=== PATIENT | female | born 1970 | race African-American/Black ===

== ENCOUNTER 2018-02-10 01:44 | Inpatient (IN) | payer OTHER ==
[2018-02-10] VITALS (7 sets, daily range): BP systolic 91–101; BP diastolic 54–67
[~2018-02-10] VITALS: Ht 170.2 cm; Wt 69.0 kg
[2018-02-10 02:42] LABS: BASOPHIL % 0.8 % (0-2); PLATELET COUNT 342 x10^3mcL (130-400)
[2018-02-10 02:49] LABS: CALCIUM 9.1 mg/dL (8.5-10.1); CARBON DIOXIDE 22.3 mmol/L (21-32); CHLORIDE SERUM 97 mmol/L (98-107); CREATININE SERUM 0.7 mg/dL (0.6-1.0); GFR1 > 60 mL/min; GLUCOSE SERUM 95 mg/dL (74-106); POTASSIUM SERUM 3.7 mmol/L (3.5-5.1); RED CELL DISTRIBUTION WIDTH 16.8 % (11.5-14.5); SODIUM SERUM 131 mmol/L (136-145)
[2018-02-10 02:53] LABS: ALBUMIN 3.8 g/dL (3.4-5.0); ALKALINE PHOSPHATASE 45 U/L (46-116); AST/SGOT 18 U/L (15-37); BILIRUBIN TOTAL 1.08 mg/dL (0.20-1.00); LIPASE 57 IU/L (73-393)
[2018-02-10 02:57] LABS: ALT/SGPT < 6.0 U/L (14-59)
[2018-02-10] MEDS ORDERED: FERROUS SULFAT325 M2 PO (04:02)
[2018-02-10 04:11] LABS: microscopic required? NO
[2018-02-10 04:28] LABS: UA SPECIFIC GRAVITY <=1.005 (1.005-1.035); urine erythrocyte NEGATIVE (NEGATIVE)
[2018-02-10 04:30] LABS: MAGNESIUM 2.4 mg/dL (1.8-2.4); PHOSPHOROUS 3.1 mg/dL (2.5-4.9)
[2018-02-10 04:33] LABS: CHOLESTEROL/HDL RATIO 2.5
[2018-02-10 04:35] LABS: AMPHETAMINE QUAL UR NONE DETECTED (NEG <=1000)
[2018-02-10 04:36] LABS: T3 TOTAL 1.03 ng/mL
[2018-02-10 04:45] LABS: FREE T4 1.17 ng/dL (0.76-1.46); FREE THYROXINE INDEX 3.1 ug/dL (1.4-4.5); T4(THYROXINE) 9.4 ug/dL (4.7-13.3)
[2018-02-11 05:13] VITALS: BP 104/58
[2018-02-11 07:10] LABS: CALCIUM 8.4 mg/dL (8.5-10.1); CARBON DIOXIDE 23.7 mmol/L (21-32); CHLORIDE SERUM 106 mmol/L (98-107); CREATININE SERUM 0.7 mg/dL (0.6-1.0); GFR1 > 60 mL/min; GLUCOSE SERUM 99 mg/dL (74-106); MAGNESIUM 1.9 mg/dL (1.8-2.4); POTASSIUM SERUM 3.9 mmol/L (3.5-5.1); SODIUM SERUM 138 mmol/L (136-145)
[2018-02-11 07:26] LABS: PLATELET COUNT 280 x10^3mcL (130-400)
[2018-02-11 07:30] LABS: RED CELL DISTRIBUTION WIDTH 17.3 % (11.5-14.5)
[2018-02-11 08:45] LABS: BAND NEUTROPHIL 0 % (0-10); BASOPHIL 0 % (0-2); MONOCYTE 8 % (0-7); SEGMENTED NEUTROPHILS 47 % (37-75)
[2018-02-11 08:47] LABS: PLATELET MORPHOLOGY PLATELETS NORMAL; burr cell (echinocyte) 1+; ovalocyte/elliptocyte 1+; rbc morphology (normal/abnorm) ABNORMAL (NORMAL)
[2018-02-11 09:40] VITALS: BP 103/72
[2018-02-11 11:48] VITALS: BP 98/64
[2018-02-11 17:00] VITALS: BP 101/65
[2018-02-11 21:43] VITALS: BP 102/67
[2018-02-12 05:18] VITALS: BP 106/67
[2018-02-12] MEDS ORDERED: FLO4 PO (05:44)
[2018-02-12] MEDS ORDERED: KEFLEX500 M1 PO (05:45)
[2018-02-12] MEDS ORDERED: LAC PO (05:45)
[2018-02-12 17:29] VITALS: BP 112/60
[2018-02-12 21:48] VITALS: BP 108/72
[2018-02-13 05:11] VITALS: BP 105/66
[2018-02-13 07:01] LABS: CALCIUM 8.8 mg/dL (8.5-10.1); CARBON DIOXIDE 24.4 mmol/L (21-32); CHLORIDE SERUM 106 mmol/L (98-107); CREATININE SERUM 0.7 mg/dL (0.6-1.0); GFR1 > 60 mL/min; GLUCOSE SERUM 83 mg/dL (74-106); MAGNESIUM 1.9 mg/dL (1.8-2.4); PHOSPHOROUS 3.9 mg/dL (2.5-4.9); PLATELET COUNT 286 x10^3mcL (130-400); POTASSIUM SERUM 3.6 mmol/L (3.5-5.1); SODIUM SERUM 141 mmol/L (136-145)
[2018-02-13 07:07] LABS: RED CELL DISTRIBUTION WIDTH 16.4 % (11.5-14.5)
[2018-02-13 08:39] LABS: BAND NEUTROPHIL 0 % (0-10); BASOPHIL 0 % (0-2); MONOCYTE 10 % (0-7); PLATELET MORPHOLOGY PLATELETS NORMAL; SEGMENTED NEUTROPHILS 44 % (37-75); rbc morphology (normal/abnorm) ABNORMAL (NORMAL)
[2018-02-13 08:40] LABS: burr cell (echinocyte) 1+; ovalocyte/elliptocyte 1+
[2018-02-13 11:01] VITALS: BP 105/64
[2018-02-13 16:46] VITALS: BP 105/68
[2018-02-13 21:00] VITALS: BP 108/72
[2018-02-13 23:14] VITALS: BP 116/73
[2018-02-14 04:51] VITALS: BP 118/74
[2018-02-14 07:48] LABS: CALCIUM 8.9 mg/dL (8.5-10.1); CARBON DIOXIDE 24.2 mmol/L (21-32); CHLORIDE SERUM 110 mmol/L (98-107); CREATININE SERUM 0.6 mg/dL (0.6-1.0); GFR1 > 60 mL/min; GLUCOSE SERUM 100 mg/dL (74-106); PLATELET COUNT 257 x10^3mcL (130-400); SODIUM SERUM 144 mmol/L (136-145)
[2018-02-14 08:07] VITALS: BP 106/65
[2018-02-14 08:52] VITALS: Ht 170.2 cm; Wt 69.0 kg
[2018-02-14] MEDS ORDERED: LACTULOSE10 GM/152 PO (10:08)
[2018-02-14 11:01] VITALS: BP 106/65
[2018-02-14 11:34] LABS: BAND NEUTROPHIL 0 % (0-10); BASOPHIL 0 % (0-2); MONOCYTE 10 % (0-7); SEGMENTED NEUTROPHILS 48 % (37-75)
[2018-02-14 11:35] LABS: PLATELET MORPHOLOGY PLATELETS NORMAL; burr cell (echinocyte) 1+; ovalocyte/elliptocyte 1+; rbc morphology (normal/abnorm) ABNORMAL (NORMAL)
== END 2018-02-14 11:48 | disposition home or self-care (01) | DRG 249 ==
LOC: ED 01:44 → MU 04:00 → DU 04:00 → MU 02-11 09:17
PROVIDERS: Emergency Medicine; Family Medicine; Internal Medicine Gastroenterology
PROC: 0DB78ZX Excision of Stomach, Pylorus, Via Natural or Artificial Opening Endoscopic, Diagnostic (ICD-10-PCS; principal; 2018-02-13 09:30)
PROC: 0DJD8ZZ Inspection of Lower Intestinal Tract, Via Natural or Artificial Opening Endoscopic (ICD-10-PCS; 2018-02-13 09:30)
DX: K52.9 Noninfective gastroenteritis and colitis, unspecified (principal); N17.0 Acute kidney failure with tubular necrosis; N13.6 Pyonephrosis; E87.1 Hypo-osmolality and hyponatremia; E83.51 Hypocalcemia; D72.819 Decreased white blood cell count, unspecified; E78.5 Hyperlipidemia, unspecified; K64.8 Other hemorrhoids; E87.8 Other disorders of electrolyte and fluid balance, not elsewhere classified; D64.9 Anemia, unspecified; E80.6 Other disorders of bilirubin metabolism; Z88.1 Allergy status to other antibiotic agents; Z88.8 Allergy status to other drugs, medicaments and biological substances; Z90.49 Acquired absence of other specified parts of digestive tract
CPT/HCPCS: 43235; 45378; 83880; 84439; 87046; 87046-59; J0696; J1200; J1610; J2250; J2270; J2310; J2765; J3010; J3490; J7030; J7040; J8597; Q0092; Q0162

== ENCOUNTER 2018-02-22 09:08 | Emergency (ER) | payer OTHER ==
[~2018-02-22] VITALS: Ht 170.2 cm; Wt 72.6 kg
[~2018-02-22 09:08] MED LIST: FERROUS SULFAT325 M2 PO; FLO4 PO; KEFLEX500 M1 PO; LAC PO; LACTULOSE10 GM/152 PO
[2018-02-22 09:16] VITALS: Ht 170.2 cm; Wt 72.6 kg
[2018-02-22 10:26] LABS: BASOPHIL % 1.1 % (0-2); PLATELET COUNT 267 x10^3mcL (130-400)
[2018-02-22 10:27] LABS: CALCIUM 8.4 mg/dL (8.5-10.1); CARBON DIOXIDE 26.2 mmol/L (21-32); CHLORIDE SERUM 102 mmol/L (98-107); CREATININE SERUM 0.7 mg/dL (0.6-1.0); GFR1 > 60 mL/min; GLUCOSE SERUM 94 mg/dL (74-106); POTASSIUM SERUM 3.8 mmol/L (3.5-5.1); SODIUM SERUM 136 mmol/L (136-145)
[2018-02-22 10:31] LABS: ALBUMIN 3.4 g/dL (3.4-5.0); ALKALINE PHOSPHATASE 47 U/L (46-116); ALT/SGPT 26 U/L (14-59); AMYLASE 41 U/L (25-115); AST/SGOT 38 U/L (15-37); BILIRUBIN TOTAL 0.2 mg/dL (0.20-1.00); LIPASE 49 IU/L (73-393); TOTAL PROTEIN, SERUM 6.2 g/dL (6.4-8.2)
[2018-02-22 10:43] LABS: RED CELL DISTRIBUTION WIDTH 16.3 % (11.5-14.5)
[2018-02-22 12:10] VITALS: BP 105/63
== END 2018-02-22 12:10 | disposition home or self-care (01) ==
LOC: ED 09:08
PROVIDERS: Specialist
DX: R10.84 Generalized abdominal pain (principal); R19.7 Diarrhea, unspecified; Z88.1 Allergy status to other antibiotic agents; Z88.8 Allergy status to other drugs, medicaments and biological substances
CPT/HCPCS: 83880; J1885; J2405

== ENCOUNTER 2018-02-24 23:06 | Emergency (ER) | payer OTHER ==
[~2018-02-24] VITALS: Ht 170.2 cm; Wt 73.0 kg
[2018-02-24 23:22] VITALS: Ht 170.2 cm; Wt 73.0 kg
[2018-02-24 23:52] LABS: BASOPHIL % 0.9 % (0-2); PLATELET COUNT 331 x10^3mcL (130-400)
[2018-02-25] LABS: RED CELL DISTRIBUTION WIDTH 16.2 % (11.5-14.5)
[2018-02-25 00:06] LABS: CALCIUM 9.1 mg/dL (8.5-10.1); CHLORIDE SERUM 102 mmol/L (98-107); CREATININE SERUM 0.7 mg/dL (0.6-1.0); GFR1 > 60 mL/min; GLUCOSE SERUM 93 mg/dL (74-106); POTASSIUM SERUM 3.4 mmol/L (3.5-5.1); SODIUM SERUM 133 mmol/L (136-145)
[2018-02-25 00:10] LABS: ALBUMIN 3.8 g/dL (3.4-5.0); ALKALINE PHOSPHATASE 56 U/L (46-116); ALT/SGPT 51 U/L (14-59); AST/SGOT 62 U/L (15-37); BILIRUBIN TOTAL 0.1 mg/dL (0.20-1.00); LIPASE 73 IU/L (73-393); TOTAL PROTEIN, SERUM 6.9 g/dL (6.4-8.2)
[2018-02-25 01:25] VITALS: BP 115/75
== END 2018-02-25 01:25 | disposition home or self-care (01) ==
LOC: ED 23:06
PROVIDERS: Emergency Medicine
DX: R07.89 Other chest pain (principal); K21.9 Gastro-esophageal reflux disease without esophagitis; I10 Essential (primary) hypertension; E11.9 Type 2 diabetes mellitus without complications; D64.9 Anemia, unspecified; Z88.8 Allergy status to other drugs, medicaments and biological substances; Z88.1 Allergy status to other antibiotic agents
CPT/HCPCS: 36415; Q0092

== ENCOUNTER 2018-04-09 17:44 | Emergency (ER) | payer OTHER ==
[~2018-04-09] VITALS: Ht 170.2 cm; Wt 68.0 kg
[2018-04-09 18:03] VITALS: Ht 170.2 cm; Wt 68.0 kg
[2018-04-09 18:38] VITALS: BP 123/78
== END 2018-04-09 18:38 | disposition home or self-care (01) ==
LOC: ED 17:44
DX: H92.13 Otorrhea, bilateral (principal); Z88.1 Allergy status to other antibiotic agents; Z88.8 Allergy status to other drugs, medicaments and biological substances

== ENCOUNTER 2018-07-05 17:18 | Emergency (ER) | payer OTHER ==
[~2018-07-05] VITALS: Ht 170.2 cm; Wt 71.4 kg
[2018-07-05 17:32] VITALS: Ht 170.2 cm; Wt 71.4 kg
[2018-07-05 23:26] VITALS: BP 121/74
== END 2018-07-05 23:26 | disposition home or self-care (01) ==
LOC: ED 17:18
DX: M70.61 Trochanteric bursitis, right hip (principal); M70.71 Other bursitis of hip, right hip; Y93.89 Activity, other specified; I10 Essential (primary) hypertension; E11.9 Type 2 diabetes mellitus without complications; Z86.2 Personal history of diseases of the blood and blood-forming organs and certain disorders involving the immune mechanism
CPT/HCPCS: J1885

== ENCOUNTER 2018-08-28 20:21 | Emergency (ER) | payer OTHER ==
[~2018-08-28] VITALS: Ht 170.2 cm; Wt 75.7 kg
[2018-08-28 20:26] VITALS: Ht 170.2 cm; Wt 75.7 kg
[2018-08-28 21:01] LABS: CALCIUM 9.2 mg/dL (8.5-10.1); CARBON DIOXIDE 23.1 mmol/L (21-32); CHLORIDE SERUM 96 mmol/L (98-107); CREATININE SERUM 0.8 mg/dL (0.6-1.0); GFR1 > 60 mL/min; GLUCOSE SERUM 88 mg/dL (74-106); SODIUM SERUM 133 mmol/L (136-145)
[2018-08-28 21:02] LABS: BASOPHIL % 0.9 % (0-2); RED CELL DISTRIBUTION WIDTH 14.2 % (11.5-14.5)
[2018-08-28 21:03] LABS: PLATELET COUNT 437 x10^3mcL (130-400)
[2018-08-28 21:06] LABS: ALKALINE PHOSPHATASE 67 U/L (46-116); ALT/SGPT 22 U/L (14-59); AST/SGOT 26 U/L (15-37); BILIRUBIN TOTAL 0.25 mg/dL (0.20-1.00); TOTAL PROTEIN, SERUM 7.7 g/dL (6.4-8.2)
[2018-08-28 21:22] LABS: UA SPECIFIC GRAVITY <=1.005 (1.005-1.035); microscopic required? YES; urine erythrocyte 2+ (NEGATIVE)
[2018-08-28 23:13] VITALS: BP 130/84
== END 2018-08-28 23:13 | disposition home or self-care (01) ==
LOC: ED 20:21
PROVIDERS: Emergency Medicine
DX: R19.7 Diarrhea, unspecified (principal); M79.604 Pain in right leg; Z88.8 Allergy status to other drugs, medicaments and biological substances; Z88.1 Allergy status to other antibiotic agents
CPT/HCPCS: 36415; Q0092

== ENCOUNTER 2018-10-21 18:19 | Emergency (ER) | payer OTHER ==
[~2018-10-21] VITALS: Ht 170.2 cm; Wt 77.1 kg
[2018-10-21 18:29] VITALS: Ht 170.2 cm; Wt 77.1 kg
[2018-10-21 19:31] VITALS: BP 127/79
== END 2018-10-21 19:31 | disposition home or self-care (01) ==
LOC: ED 18:19
DX: R11.2 Nausea with vomiting, unspecified (principal); R19.7 Diarrhea, unspecified; R10.13 Epigastric pain; B96.81 Helicobacter pylori [H. pylori] as the cause of diseases classified elsewhere; M54.30 Sciatica, unspecified side; Z90.49 Acquired absence of other specified parts of digestive tract; Z88.1 Allergy status to other antibiotic agents; Z98.890 Other specified postprocedural states

== ENCOUNTER 2019-06-08 20:36 | Emergency (ER) | payer OTHER ==
[~2019-06-08] VITALS: Ht 170.2 cm; Wt 83.0 kg
[2019-06-08 20:56] VITALS: BP 127/78; Ht 170.2 cm; Wt 83.0 kg
== END 2019-06-08 22:02 | disposition home or self-care (01) ==
LOC: ED 20:36
DX: H61.21 Impacted cerumen, right ear (principal); Z88.8 Allergy status to other drugs, medicaments and biological substances; Z88.1 Allergy status to other antibiotic agents; Z86.2 Personal history of diseases of the blood and blood-forming organs and certain disorders involving the immune mechanism; Z98.890 Other specified postprocedural states

== ENCOUNTER 2019-12-10 22:37 | Emergency (ER) | payer OTHER ==
[~2019-12-10] VITALS: Ht 175.3 cm; Wt 85.7 kg
[2019-12-10 22:39] VITALS: Ht 175.3 cm; Wt 85.7 kg
[2019-12-11 00:18] LABS: BASOPHIL % 0.8 % (0-2); PLATELET COUNT 324 x10^3mcL (130-400)
[2019-12-11 00:21] LABS: RED CELL DISTRIBUTION WIDTH 14.7 % (11.5-14.5)
[2019-12-11 01:02] LABS: CALCIUM 9.2 mg/dL (8.5-10.1); CARBON DIOXIDE 31.1 mmol/L (21-32); CHLORIDE SERUM 98 mmol/L (98-107); CREATININE SERUM 0.7 mg/dL (0.6-1.0); GFR1 > 60 mL/min; GLUCOSE SERUM 97 mg/dL (74-106); POTASSIUM SERUM 3.9 mmol/L (3.5-5.1); SODIUM SERUM 134 mmol/L (136-145)
[2019-12-11 01:04] LABS: AMPHETAMINE QUAL UR NONE DETECTED (See below)
[2019-12-11 01:08] LABS: ALBUMIN 3.7 g/dL (3.4-5.0); ALKALINE PHOSPHATASE 104 U/L (46-116); ALT/SGPT 16 U/L (14-59); AST/SGOT 18 U/L (15-37); BILIRUBIN TOTAL 0.2 mg/dL (0.20-1.00); LIPASE 72 IU/L (73-393); TOTAL PROTEIN, SERUM 7.7 g/dL (6.4-8.2)
[2019-12-11 02:30] VITALS: BP 114/76
== END 2019-12-11 02:30 | disposition home or self-care (01) ==
LOC: ED 22:37
PROVIDERS: Emergency Medicine
DX: R53.1 Weakness (principal); F41.9 Anxiety disorder, unspecified; R42 Dizziness and giddiness; Z88.8 Allergy status to other drugs, medicaments and biological substances; Z88.1 Allergy status to other antibiotic agents
CPT/HCPCS: Q0092

== ENCOUNTER 2020-01-26 22:32 | Emergency (ER) | payer OTHER ==
[~2020-01-26] VITALS: Ht 172.7 cm; Wt 84.8 kg
[2020-01-26 22:42] VITALS: Ht 172.7 cm; Wt 84.8 kg
[2020-01-27 00:07] LABS: PLATELET COUNT 280 x10^3mcL (130-400)
[2020-01-27 00:08] LABS: RED CELL DISTRIBUTION WIDTH 15.4 % (11.5-14.5)
[2020-01-27 00:18] LABS: CALCIUM 9.1 mg/dL (8.5-10.1); CHLORIDE SERUM 104 mmol/L (98-107); CREATININE SERUM 0.6 mg/dL (0.6-1.0); GFR1 > 60 mL/min; GLUCOSE SERUM 101 mg/dL (74-106); POTASSIUM SERUM 3.5 mmol/L (3.5-5.1); SODIUM SERUM 139 mmol/L (136-145)
[2020-01-27 00:25] LABS: ALBUMIN 3.6 g/dL (3.4-5.0); ALKALINE PHOSPHATASE 132 U/L (46-116); ALT/SGPT 13 U/L (14-59); AST/SGOT 21 U/L (15-37); BILIRUBIN TOTAL 0.1 mg/dL (0.20-1.00); LIPASE 78 IU/L (73-393); TOTAL PROTEIN, SERUM 7.5 g/dL (6.4-8.2)
[2020-01-27 01:08] LABS: microscopic required? NO
[2020-01-27 01:23] LABS: UA SPECIFIC GRAVITY <=1.005 (1.005-1.035); urine erythrocyte NEGATIVE (NEGATIVE)
[2020-01-27 03:01] VITALS: BP 112/71
== END 2020-01-27 03:03 | disposition home or self-care (01) ==
LOC: ED 22:32
PROVIDERS: Emergency Medicine
DX: R10.10 Upper abdominal pain, unspecified (principal); R11.2 Nausea with vomiting, unspecified; R19.7 Diarrhea, unspecified; Z88.8 Allergy status to other drugs, medicaments and biological substances; Z88.1 Allergy status to other antibiotic agents; Z98.890 Other specified postprocedural states
CPT/HCPCS: 87046; 87046-59; J2405; J7030; Q0092

== ENCOUNTER 2020-04-26 23:54 | Emergency (ER) | payer OTHER ==
[~2020-04-26] VITALS: Ht 170.2 cm; Wt 85.4 kg
[2020-04-27 00:02] VITALS: Ht 170.2 cm; Wt 85.4 kg
[2020-04-27 01:40] LABS: CARBON DIOXIDE 29.1 mmol/L (21-32); CHLORIDE SERUM 103 mmol/L (98-107); CREATININE SERUM 0.9 mg/dL (0.6-1.0); GFR1 > 60 mL/min; GLUCOSE SERUM 90 mg/dL (74-106); POTASSIUM SERUM 3.8 mmol/L (3.5-5.1); SODIUM SERUM 138 mmol/L (136-145)
[2020-04-27 01:44] LABS: ALBUMIN 3.8 g/dL (3.4-5.0); ALKALINE PHOSPHATASE 117 U/L (46-116); ALT/SGPT 12 U/L (14-59); AST/SGOT 13 U/L (15-37); BILIRUBIN TOTAL 0.13 mg/dL (0.20-1.00); TOTAL PROTEIN, SERUM 7.3 g/dL (6.4-8.2)
[2020-04-27 01:58] LABS: BASOPHIL % 0.8 % (0-2); PLATELET COUNT 302 x10^3mcL (130-400)
[2020-04-27 04:50] VITALS: BP 127/55
== END 2020-04-27 03:40 | disposition home or self-care (01) ==
LOC: ED 23:54
PROVIDERS: Emergency Medicine
DX: R42 Dizziness and giddiness (principal); H53.9 Unspecified visual disturbance; R53.1 Weakness; Z98.890 Other specified postprocedural states; Z86.2 Personal history of diseases of the blood and blood-forming organs and certain disorders involving the immune mechanism; Z88.1 Allergy status to other antibiotic agents
CPT/HCPCS: J7030

== ENCOUNTER 2020-06-20 20:03 | Emergency (ER) | payer OTHER ==
[~2020-06-20] VITALS: Ht 170.2 cm; Wt 86.2 kg
[2020-06-20 21:42] LABS: BASOPHIL % 1.6 % (0-2); PLATELET COUNT 349 x10^3mcL (130-400); RED CELL DISTRIBUTION WIDTH 14.7 % (11.5-14.5)
[2020-06-20 21:51] LABS: CALCIUM 9.3 mg/dL (8.5-10.1); CARBON DIOXIDE 29.2 mmol/L (21-32); CHLORIDE SERUM 103 mmol/L (98-107); CREATININE SERUM 0.9 mg/dL (0.6-1.0); GFR1 > 60 mL/min; GLUCOSE SERUM 111 mg/dL (74-106); POTASSIUM SERUM 4.3 mmol/L (3.5-5.1); SODIUM SERUM 140 mmol/L (136-145)
[2020-06-20 21:59] LABS: ALKALINE PHOSPHATASE 136 U/L (46-116); ALT/SGPT 15 U/L (14-59); AST/SGOT 25 U/L (15-37); BILIRUBIN TOTAL 0.19 mg/dL (0.20-1.00)
[2020-06-20 23:13] VITALS: BP 145/82
== END 2020-06-20 23:13 | disposition home or self-care (01) ==
LOC: ED 20:03
PROVIDERS: Specialist
DX: R42 Dizziness and giddiness (principal); R19.7 Diarrhea, unspecified; R11.0 Nausea; H53.8 Other visual disturbances; Z98.890 Other specified postprocedural states; Z88.1 Allergy status to other antibiotic agents; Z88.8 Allergy status to other drugs, medicaments and biological substances
CPT/HCPCS: J8597

== ENCOUNTER 2020-08-28 22:48 | Emergency (ER) | payer OTHER ==
[~2020-08-28] VITALS: Ht 170.2 cm; Wt 88.9 kg
[2020-08-28 23:21] VITALS: Ht 170.2 cm; Wt 88.9 kg
[2020-08-29 01:14] LABS: microscopic required? NO
[2020-08-29 01:21] LABS: PLATELET COUNT 326 x10^3mcL (130-400)
[2020-08-29 01:23] LABS: UA SPECIFIC GRAVITY <=1.005 (1.005-1.035); urine erythrocyte NEGATIVE (NEGATIVE)
[2020-08-29 01:23] LABS: RED CELL DISTRIBUTION WIDTH 14.9 % (11.5-14.5)
[2020-08-29 01:41] LABS: CALCIUM 9.9 mg/dL (8.5-10.1); CARBON DIOXIDE 30.5 mmol/L (21-32); CHLORIDE SERUM 99 mmol/L (98-107); CREATININE SERUM 0.8 mg/dL (0.6-1.0); GFR1 > 60 mL/min; GLUCOSE SERUM 104 mg/dL (74-106); POTASSIUM SERUM 3.9 mmol/L (3.5-5.1); SODIUM SERUM 136 mmol/L (136-145)
[2020-08-29 01:45] LABS: ALBUMIN 3.8 g/dL (3.4-5.0); ALKALINE PHOSPHATASE 136 U/L (46-116); ALT/SGPT 20 U/L (14-59); AMYLASE 66 U/L (25-115); AST/SGOT 22 U/L (15-37); BILIRUBIN TOTAL 0.21 mg/dL (0.20-1.00); LIPASE 122 IU/L (73-393); TOTAL PROTEIN, SERUM 7.6 g/dL (6.4-8.2)
[2020-08-29 02:24] VITALS: BP 110/66
== END 2020-08-29 02:40 | disposition home or self-care (01) ==
LOC: ED 22:48
PROVIDERS: Specialist
DX: R10.11 Right upper quadrant pain (principal); R10.12 Left upper quadrant pain; R14.0 Abdominal distension (gaseous); Z98.890 Other specified postprocedural states; Z90.49 Acquired absence of other specified parts of digestive tract; Z88.1 Allergy status to other antibiotic agents; Z88.8 Allergy status to other drugs, medicaments and biological substances

== ENCOUNTER 2021-01-01 22:10 | Emergency (ER) | payer OTHER ==
[~2021-01-01] VITALS: Ht 170.2 cm; Wt 86.2 kg
[2021-01-01 22:37] VITALS: Ht 170.2 cm; Wt 86.2 kg
[2021-01-02 00:13] LABS: BASOPHIL % 1.6 % (0.2-1.3); PLATELET COUNT 330 x10^3mcL (179-408)
[2021-01-02 00:28] LABS: CARBON DIOXIDE 28.6 mmol/L (21-32); CHLORIDE SERUM 99 mmol/L (98-107); CREATININE SERUM 0.8 mg/dL (0.6-1.0); GFR1 > 60 mL/min; GLUCOSE SERUM 106 mg/dL (74-106); POTASSIUM SERUM 3.7 mmol/L (3.5-5.1); SODIUM SERUM 137 mmol/L (136-145)
[2021-01-02 00:32] LABS: ALBUMIN 4.1 g/dL (3.4-5.0); ALKALINE PHOSPHATASE 120 U/L (46-116); ALT/SGPT 18 U/L (14-59); AST/SGOT 25 U/L (15-37); BILIRUBIN TOTAL 0.1 mg/dL (0.20-1.00); LIPASE 110 IU/L (73-393); TOTAL PROTEIN, SERUM 7.8 g/dL (6.4-8.2)
[2021-01-02 02:23] VITALS: BP 118/81
== END 2021-01-02 02:23 | disposition home or self-care (01) ==
LOC: ED 22:10
PROVIDERS: Emergency Medicine
DX: R10.31 Right lower quadrant pain (principal); E78.00 Pure hypercholesterolemia, unspecified; Z90.49 Acquired absence of other specified parts of digestive tract; Z98.890 Other specified postprocedural states; Z88.8 Allergy status to other drugs, medicaments and biological substances; Z88.1 Allergy status to other antibiotic agents